=== PATIENT | female | born 1985 | race Two or more races ===

== ENCOUNTER 2018-02-15 12:43 | Emergency (ER) | payer MEDICAID, OTHER ==
[~2018-02-15] VITALS: Ht 165.1 cm; Wt 68.0 kg
--- NOTE | 2018-02-15 13:09 | Emergency Room Report ---
History of Present Illness General Chief Complaint: Vaginal Source: Patient Present Illness HPI 32-year-old female presents to the emergency department complaining of moderate vaginal bleeding 3 weeks. Patient reports that 3 weeks ago she took oral pill and had a moderate amount of bleeding and passed a large sites clot and after several days the bleeding began to minimize to dark clots patient thought that it was about to stop however she began having bright red blood again the next morning patient states that she estimates going through approximately 3-4 pads per hour. She followed up with [facility] today and had ultrasound performed which he was told the was complete. She states she did not have any blood work done. She is reporting fatigue, chills, and heightened anxiety as she feels she has lost a lot of blood. Patient denies taking any other medications or supplements at this time. Denies history of anemia, taking blood thinning medications or history of blood dyscrasias. Patient reports 5 out of 10 in severity lower abdominal cramping pain she denies nausea, vomiting, constipation or diarrhea. She does report some urinary frequency and is unable to determine if she has had any hematuria. Denies CP, Palpitations, LOC, AMS, dizziness, Changes in Vision, Sensation, paresthesias, or a sudden severe headache. Pt. was just rx'd Flagyl by OBGYN today. Allergies: Coded Allergies: No Known Allergies (Unverified , 02/15/18) Patient History Past Medical History: see triage record Past Surgical History: none Pertinent Family History: none Last Menstrual Period: 12/18/2017 Now: No : 4 Para: 2 Reviewed Nursing Documentation: PMH: Agreed; PSxH: Agreed Nursing Documentation-PMH Past Medical History: No Stated History Review of Systems All Other Systems: negative except mentioned in HPI Physical Exam Vital Signs Date Time Temp Pulse Resp B/P (MAP) Pulse Ox O2 Delivery O2 Flow Rate FiO2 02/15/18 12:48 98.4 115 21 121/78 100 Room Air Sp02 EP Interpretation: reviewed, normal General Appearance: alert, GCS 15, non-toxic, moderate distress Head: normocephalic, atraumatic Eyes: bilateral eye normal inspection, bilateral eye PERRL ENT: hearing grossly normal, normal voice Neck: full range of motion Respiratory: lungs clear, normal breath sounds, speaking full sentences Cardiovascular #1: regular rate, rhythm Gastrointestinal: normal bowel sounds, non tender, soft, non-distended, no guarding, other - no significant abdominal ttp. Rectal: deferred Genitourinary: normal inspection, os closed, other - no significant abdominal ttp. Musculoskeletal: back normal, gait/station normal, normal range of motion, non- tender Neurologic: alert, oriented x3, responsive, motor strength/tone normal, sensory intact, normal gait, speech normal, grossly normal Psychiatric: judgement/insight normal Skin: normal color, no rash, warm/dry, well hydrated Medical Decision Making PA Attestation Dr. puentes is my supervising Physician whom patient management has been discussed with. Diagnostic Impression: Primary Impression: Vaginal bleeding ER Course 32-year-old female presents to the emergency department complaining of moderate vaginal bleeding 3 weeks. Patient reports that 3 weeks ago she took oral pill and had a moderate amount of bleeding and passed a large sites clot and after several days the bleeding began to minimize to dark clots patient thought that it was about to stop however she began having bright red blood again the next morning patient states that she estimates going through approximately 3-4 pads per hour. She followed up with [facility] today and had ultrasound performed which he was told the was complete. She states she did not have any blood work done. She is reporting fatigue, chills, and heightened anxiety as she feels she has lost a lot of blood. Patient denies taking any other medications or supplements at this time. Denies history of anemia, taking blood thinning medications or history of blood dyscrasias. Patient reports 5 out of 10 in severity lower abdominal cramping pain she denies nausea, vomiting, constipation or diarrhea. She does report some urinary frequency and is unable to determine if she has had any hematuria. Denies CP, Palpitations, LOC, AMS, dizziness, Changes in Vision, Sensation, paresthesias, or a sudden severe headache. Pt. was just rx'd Flagyl by OBGYN today. Ddx considered but are not limited to: Fibroid, ectopic , Fibroid, Spontaneous ,missed miscarriage. Vital signs: Tachycardic, pt. is afebrile H&PE are most consistent with: persistent vaginal bleeding following pill, r/o missed miscarriage. ORDERS: -CBC: unremarkable, mild anemia -CMP: WNL, electrolytes ok. -PT/PTT: WNL -serum Hcg Quant: 1558 - UA: RBC's occult blood, elevated WBC's and ketones. suspicious for contamination. d/w pt. will culture and contact her if additional abx are needed. - Blood/RH type and screen- see attached labs ( O POSITIVE) -OB US: "No IUP or complex adnexal lesions. Thickening debris in the cervical canal. Endometrium measures 5 mm. Ovaries are without torsion or complex lesions. Small free fluid in the pelvis" Per official radiology report- Please see report for specific details. ED INTERVENTIONS: -IV Access and NS Bolus - NS Bolus - Toradol IV --Re-eval : VS have improved. Discussed with this patient ultrasound results as well as results of her blood work and landed her with her hCG Quant. Discussed with patient that she needs to follow-up and have repeat Quant performed until it reaches 0. She is given strict ED return precautions. DISCHARGE: At this time pt. is stable for d/c to home. Will provide printed patient care instructions, and any necessary prescriptions. Care plan and follow up instructions have been discussed with the patient prior to discharge. Labs Test 02/15/18 13:12 02/15/18 15:00 White Blood Count 9.6 K/UL (4.8-10.8) Red Blood Count 4.37 M/UL (4.20-5.40) Hemoglobin 11.3 G/DL (12.0-16.0) Hematocrit 34.4 % (37.0-47.0) Mean Corpuscular Volume 79 FL (80-99) Mean Corpuscular Hemoglobin 26.0 PG (27.0-31.0) Mean Corpuscular Hemoglobin Concent 32.9 G/DL (32.0-36.0) Red Cell Distribution Width 11.4 % (11.6-14.8) Platelet Count 400 K/UL (150-450) Mean Platelet Volume 7.3 FL (6.5-10.1) Neutrophils (%) (Auto) 69.6 % (45.0-75.0) Lymphocytes (%) (Auto) 21.2 % (20.0-45.0) Monocytes (%) (Auto) 6.5 % (1.0-10.0) Eosinophils (%) (Auto) 1.7 % (0.0-3.0) Basophils (%) (Auto) 1.0 % (0.0-2.0) Prothrombin Time 11.6 SEC (9.30-11.50) Prothromb Time International Ratio 1.1 (0.9-1.1) Activated Partial Thromboplast Time 29 SEC (23-33) Sodium Level 140 MMOL/L (136-145) Potassium Level 3.5 MMOL/L (3.5-5.1) Chloride Level 103 MMOL/L (98-107) Carbon Dioxide Level 23 MMOL/L (21-32) Anion Gap 14 mmol/L (5-15) Blood Urea Nitrogen 7 mg/dL (7-18) Creatinine 0.8 MG/DL (0.55-1.30) Estimat Glomerular Filtration Rate > 60 mL/min (>60) Glucose Level 96 MG/DL (74-106) Calcium Level 9.2 MG/DL (8.5-10.1) Total Bilirubin 0.4 MG/DL (0.2-1.0) Aspartate Amino Transf (AST/SGOT) 23 U/L (15-37) Alanine Aminotransferase (ALT/SGPT) 42 U/L (12-78) Alkaline Phosphatase 110 U/L (46-116) Total Protein 8.6 G/DL (6.4-8.2) Albumin 4.1 G/DL (3.4-5.0) Globulin 4.5 g/dL Albumin/Globulin Ratio 0.9 (1.0-2.7) Human Chorionic Gonadotropin, Quant 1558 mIU/mL (1-6) Urine Color Red Urine Appearance Slightly cloudy Urine pH 5 (4.5-8.0) Urine Specific [place] 1.010 (1.005-1.035) Urine Protein 4+ (NEGATIVE) Urine Glucose (UA) Negative (NEGATIVE) Urine Ketones 3+ (NEGATIVE) Urine Blood 5+ (NEGATIVE) Urine Nitrite Negative (NEGATIVE) Urine Bilirubin Negative (NEGATIVE) Urine Urobilinogen Normal MG/DL (0.0-1.0) Urine Leukocyte Esterase 2+ (NEGATIVE) Urine RBC Tntc /HPF (0 - 2) Urine WBC 5-10 /HPF (0 - 2) Urine Squamous Epithelial Cells Few /LPF (NONE/OCC) Urine Bacteria Few /HPF (NONE) CT/MRI/US Diagnostic Results CT/MRI/US Diagnostic Results : Imaging Test Ordered: OB US Impression "No IUP or complex adnexal lesions. Thickening debris in the cervical canal. Endometrium measures 5 mm. Ovaries are without torsion or complex lesions. Small free fluid in the pelvis" Per official radiology report- Please see report for specific details. Last Vital Signs Date Time Temp Pulse Resp B/P (MAP) Pulse Ox O2 Delivery O2 Flow Rate FiO2 02/15/18 12:48 98.4 115 21 121/78 100 Room Air Disposition: HOME, SELF-CARE Condition: Stable Scripts Norethindrone-E.estradiol-Iron ([place] Fe 1.5-30 Tablet) 1 Each Tablet 1 EACH PO DAILY, #1 PACK 1 Refill Prov: Ramya Peoples 02/15/18 Ibuprofen* (MOTRIN*) 600 Mg Tablet 600 MG ORAL THREE TIMES A DAY, #30 TAB 0 Refills Prov: Ramya Peoples 02/15/18 Departure Forms: Return to Work Return to Work Date: Feb 19, 2018 Work Restrictions: None Other Restrictions: May return Sooner if Symptoms have resolved. Return to Full Activity: Feb 19, 2018 Patient Instructions: Miscarriage, [id number] Additional Instructions: Take medications as directed. Follow up with a OBGYN or PCP within 3 days, even if your symptoms have resolved. Return sooner to ED if new symptoms occur, or current symptoms become worse. - Please note that this Emergency Department Report was dictated using [employer]otic[employer] technology software, occasionally this can lead to erroneous entry secondary to interpretation by the dictation equipment. Ramya Peoples Feb 15, 2018 13:09
[2018-02-15] MEDS ORDERED: Ketorolac 30mg Inj IV ONE (13:15)
[2018-02-15 13:47] VITALS: BP 122/79
[2018-02-15 13:51] LABS: ANION GAP 14 mmol/L (5-15); BLOOD UREA NITROGEN 7 mg/dL (7-18); CALCIUM 9.2 MG/DL (8.5-10.1); CARBON DIOXIDE 23 MMOL/L (21-32); CHLORIDE 103 MMOL/L (98-107); CREATININE 0.8 MG/DL (0.55-1.30); POTASSIUM 3.5 MMOL/L (3.5-5.1); SODIUM 140 MMOL/L (136-145)
[2018-02-15 13:52] LABS: EOSINOPHILS % (AUTO) 1.7 % (0.0-3.0); HEMATOCRIT 34.4 % (37.0-47.0); HEMOGLOBIN 11.3 G/DL (12.0-16.0); LYMPHOCYTES % (AUTO) 21.2 % (20.0-45.0); MEAN CORPUSCULAR VOLUME 79 FL (80-99); MONOCYTES % (AUTO) 6.5 % (1.0-10.0); NEUTROPHILS % (AUTO) 69.6 % (45.0-75.0); PLATELET COUNT 400 K/UL (150-450); RED BLOOD COUNT 4.37 M/UL (4.20-5.40); RED CELL DISTRIBUTION WIDTH 11.4 % (11.6-14.8); WHITE BLOOD COUNT 9.6 K/UL (4.8-10.8)
[2018-02-15 13:56] LABS: ALANINE AMINOTRANSFERASE 42 U/L (12-78); ALBUMIN 4.1 G/DL (3.4-5.0); ALBUMIN/GLOBULIN RATIO 0.9 (1.0-2.7); ALKALINE PHOSPHATASE 110 U/L (46-116); ASPARTATE AMINO TRANSFERASE 23 U/L (15-37); BILIRUBIN,TOTAL 0.4 MG/DL (0.2-1.0)
[2018-02-15 13:58] LABS: INR 1.1 (0.9-1.1)
[2018-02-15 15:20] LABS: APPEARANCE,URINE SLIGHTLY CLOUDY; BILIRUBIN, URINE NEGATIVE (NEGATIVE); COLOR,URINE RED; GLUCOSE, URINE (UA) NEGATIVE (NEGATIVE); KETONES,URINE 3+ (NEGATIVE); LEUKOCYTE ESTERASE ,URINE 2+ (NEGATIVE); NITRITE,URINE NEGATIVE (NEGATIVE); PH,URINE 5 (4.5-8.0); PROTEIN,URINE 4+ (NEGATIVE); UROBILINOGEN,URINE NORMAL MG/DL (0.0-1.0)
[2018-02-15 17:10] VITALS: BP 119/82
[2018-02-15] MEDS ORDERED: BLISOVI FE 1.51 EACH PO (17:59)
[2018-02-15] MEDS ORDERED: IBUPROFEN600 MG ORAL (17:59)
[2018-02-15 18:20] VITALS: BP 122/79
--- NOTE | 2018-02-15 19:40 | Diagnostic Imaging Report ---
EXAM: US First Trimester, Transabdominal US , Transvaginal CLINICAL HISTORY: PAIN TECHNIQUE: Real-time transabdominal and transvaginal obstetrical ultrasound of the maternal pelvis and a first trimester with image documentation. Transvaginal imaging was used for better evaluation of the fetus and adnexa. COMPARISON: No relevant prior studies available. FINDINGS: Gestation: No IUP Uterus/cervix: Endometrium measures about 5 mm. Thickening/debris in the cervical canal. Uterus measures 8.4 x 3.8 centimeters. Ovaries: Right ovary measures 2.7 x 2.0 cm. No complex lesion or torsion. Left ovary measures 2.2 x 1.9 cm. No complex lesion or torsion. Free fluid: Small fluid in the pelvis. IMPRESSION: No IUP or complex adnexal lesions demonstrated. Findings are nonspecific and may be seen in the setting of early IUP, SAB or occult ectopic. Correlation and followup needed
== END 2018-02-15 18:22 | disposition home or self-care (01) ==
LOC: EMR 13:15
DX: N93.8 Other specified abnormal uterine and vaginal bleeding (principal); R35.0 Frequency of micturition; R00.0 Tachycardia, unspecified; D64.9 Anemia, unspecified
CPT/HCPCS: 36415; 76801; 76830; 80053; 81003; 84702; 85025; 85610; 85730; 86850; 86900; 86901; 96361; 96374; 99284; J1885